=== PATIENT | male | born 1965 | race Hispanic/Latino ===

== ENCOUNTER 2021-02-02 14:26 | Emergency (ER) | payer BC ==
--- NOTE | 2021-02-02 15:16 | Emergency Department Report ---
HPI - General Chief Complaint: Syncope Time Seen by Provider: 02/02/21 14:55 - HPI HPI: This is a 55-year-old male presents to the emergency department with a complaint of some dizziness and almost passing out. Patient says that he felt very lightheaded and had a room spinning sensation, while at work, and says "if the other guys were not there and I probably would have fallen over." He denies actually losing consciousness. He denies any chest pain, shortness of breath, fever, headache, vision change, slurred speech. At the time of my examination the patient just complains of some mild lightheadedness. He denies having any past medical history, but also denies seeing a primary care physician regularly. He does not smoke cigarettes but does dip or use chewing tobacco. He denies any excessive alcohol use or any illicit drug use. No recent travel or sick contacts at home. ED Past Medical Hx - Past Medical History Previous Medical History?: No - Surgical History Past Surgical History?: No - Social History Smoking Status: Never Smoker Substance Use Type: Alcohol ED Review of Systems ROS: Stated complaint: SYNCOPAL EPISODE Other details as noted in HPI Comment: All other systems reviewed and negative Constitutional: denies: chills, fever Eyes: denies: eye pain, vision change ENT: denies: ear pain, throat pain Respiratory: denies: cough, shortness of breath Cardiovascular: syncope (Near syncope). denies: chest pain, palpitations Gastrointestinal: denies: abdominal pain, vomiting Genitourinary: denies: dysuria, discharge Musculoskeletal: denies: back pain, arthralgia Skin: denies: rash, lesions Neurological: vertigo, other (Dizziness/lightheadedness). denies: headache Physical Exam - Physical Exam Vital Signs: Vital Signs 02/02/21 02/02/21 02/02/21 14:50 14:52 14:54 Pulse Rate 67 68 71 Respiratory 11 L 11 L 15 Rate Blood Pressure 139/87 139/87 O2 Sat by Pulse 95 96 95 Oximetry 02/02/21 14:56 Pulse Rate 68 Respiratory 14 Rate Blood Pressure 139/87 O2 Sat by Pulse 95 Oximetry Physical Exam: GENERAL: The patient is well-developed well-nourished. HENT: Normocephalic. Atraumatic. Patient has moist mucous membranes. EYES: Extraocular motions are intact. Pupils equal reactive to light bilaterally. No nystagmus. NECK: Supple. Trachea is midline. CHEST/LUNGS: Clear to auscultation. There is no respiratory distress noted. HEART/CARDIOVASCULAR: Regular. There is no tachycardia. There is no murmur. ABDOMEN: Abdomen is soft, nontender. Patient has normal bowel sounds. There is no abdominal distention. SKIN: Skin is warm and dry. NEURO: The patient is awake, alert, and oriented. The patient is cooperative. The patient has no focal neurologic deficits. Normal speech. Cranial nerves II through XII grossly intact. No facial asymmetry. No pronator drift or dysmetri a. MUSCULOSKELETAL: There is no tenderness or deformity. There is no limitation range of motion. ED Course Vital Signs 02/02/21 02/02/21 02/02/21 14:50 14:52 14:54 Pulse Rate 67 68 71 Respiratory 11 L 11 L 15 Rate Blood Pressure 139/87 139/87 O2 Sat by Pulse 95 96 95 Oximetry 02/02/21 14:56 Pulse Rate 68 Respiratory 14 Rate Blood Pressure 139/87 O2 Sat by Pulse 95 Oximetry ED Medical Decision Making - Lab Data Result diagrams: 02/02/21 15:18 02/02/21 15:18 Lab Results 02/02/21 02/02/21 02/02/21 Range/Units 15:18 15:18 15:18 WBC 9.7 (4.5-11.0) K/mm3 RBC 4.04 (3.65-5.03) M/mm3 Hgb 13.7 (11.8-15.2) gm/dl Hct 38.6 (35.5-45.6) % MCV 96 H (84-94) fl MCH 34 H (28-32) pg MCHC 36 H (32-34) % RDW 13.5 (13.2-15.2) % Plt Count 298 (140-440) K/mm3 Lymph % (Auto) 9.6 L (13.4-35.0) % Roane % (Auto) 3.9 (0.0-7.3) % Eos % (Auto) 0.9 (0.0-4.3) % Baso % (Auto) 0.7 (0.0-1.8) % Lymph # (Auto) 0.9 L (1.2-5.4) K/mm3 Roane # (Auto) 0.4 (0.0-0.8) K/mm3 Eos # (Auto) 0.1 (0.0-0.4) K/mm3 Baso # (Auto) 0.1 (0.0-0.1) K/mm3 Seg Neutrophils % 84.9 H (40.0-70.0) % Seg Neutrophils # 8.2 H (1.8-7.7) K/mm3 Sodium 139 (137-145) mmol/L Potassium 3.5 L (3.6-5.0) mmol/L Chloride 102.8 (98-107) mmol/L Carbon Dioxide 26 (22-30) mmol/L Anion Gap 14 mmol/L BUN 19 (9-20) mg/dL Creatinine 0.6 L (0.8-1.3) mg/dL Estimated GFR > 60 ml/min BUN/Creatinine Ratio 32 % Glucose 120 H (75-100) mg/dL Calcium 8.7 (8.4-10.2) mg/dL Total Bilirubin 0.40 (0.1-1.2) mg/dL AST 19 (5-40) units/L ALT 24 (7-56) units/L Alkaline Phosphatase 58 (35-129) units/L Troponin T < 0.010 (0.00-0.029) ng/mL Total Protein 6.6 (6.3-8.2) g/dL Albumin 4.4 (3.9-5) g/dL Albumin/Globulin Ratio 2.0 % TSH 1.510 (0.270-4.200) mlU/mL - EKG Data -: EKG Interpreted by [facility] EKG shows normal: sinus rhythm, axis, intervals, QRS complexes (Right bundle branch block), ST-T waves Rate: normal - EKG Data When compared to previous EKG there are: previous EKG unavailable Interpretation: other (Sinus rhythm, normal axis, normal intervals, rate of 65 bpm, right bundle branch block.) - Medical Decision Making This patient presents to the emergency department after having some nonspecific dizziness/lightheadedness and possibly some vertigo. Initially the patient just complains of some mild lightheadedness. On examination he does not have any focal, motor or sensory deficits and his cranial nerves are intact. The patient's labs have been unremarkable including CBC, metabolic panel, negative troponin and normal thyroid function. Vital signs have been reassuring throughout his ED course. The patient was reevaluated multiple times over almost 3 hours and says he is feeling greatly improved after "taking a nap." He was seen ambulatory in the emergency department and both appears and feels stable. For all these reasons I did not feel that the patient required CT imaging of his head, and he appears safe for discharge home at this time. We discussed avoiding any heavy alcohol or caffeine use, getting 8 hours of uninterrupted sleep at night, and outpatient follow-up with primary care. He will return to the emergency department with any worsening of his symptoms or with any acute distress. Critical Care Time: No Critical care attestation.: If time is entered above; I have spent that time in minutes in the direct care of this critically ill patient, excluding procedure time. ED Disposition Clinical Impression: Near syncope, Dizziness Disposition: DC-01 TO HOME OR SELFCARE Is pt being admited?: No Condition: Stable Instructions: Near-Syncope, Dizziness Additional Instructions: Please follow-up with a primary care physician in the next few days. Please avoid any excessive alcohol or caffeine use. Please try to get 8 hours of uninterrupted sleep per night. Return to the emergency department with any worsening of your symptoms, new or concerning symptoms not addressed during this current emergency department visit, or with any acute distress. Referrals: AMANDA SENA MD [Primary Care Provider] - 3-5 Days JOHNNY STUBBS MD [Staff Physician] - 3-5 Days [facility] [Provider Group] - 3-5 Days Time of Disposition: 17:16
[2021-02-02 15:32] LABS: Basophils # (Auto) 0.1 K/mm3 (0.0-0.1); Basophils % (Auto) 0.7 % (0.0-1.8); Eosinophils # (Auto) 0.1 K/mm3 (0.0-0.4); Eosinophils % (Auto) 0.9 % (0.0-4.3); Hematocrit 38.6 % (35.5-45.6); Hemoglobin 13.7 gm/dl (11.8-15.2); Lymphocytes # (Auto) 0.9 K/mm3 (1.2-5.4); Lymphocytes % (Auto) 9.6 % (13.4-35.0); Mean Corpuscular HGB Conc 36 % (32-34); Mean Corpuscular Volume 96 fl (84-94); Monocytes # (Auto) 0.4 K/mm3 (0.0-0.8); Monocytes % (Auto) 3.9 % (0.0-7.3); Platelet Count 298 K/mm3 (140-440); Red Blood Count 4.04 M/mm3 (3.65-5.03); Red Cell Distribution Width 13.5 % (13.2-15.2)
[2021-02-02 15:58] LABS: Albumin 4.4 g/dL (3.9-5); Blood Urea Nitrogen 19 mg/dL (9-20); Calcium 8.7 mg/dL (8.4-10.2); Hemolysis Index 7
[2021-02-02 16:00] LABS: BUN/Creatinine Ratio 32
[2021-02-02 16:47] LABS: Alanine Aminotransferase 24 units/L (7-56)
[2021-02-02 17:36] VITALS: BP 145/90
== END 2021-02-02 17:36 | disposition home or self-care (01) ==
LOC: ED 14:26
DX: R55 Syncope and collapse (principal); R42 Dizziness and giddiness
CPT/HCPCS: 36415; 80053; 84443; 84484; 85025